=== PATIENT | male | born 1965 | race Caucasian/White ===

== ENCOUNTER 2024-01-13 08:51 | Inpatient (IN) | payer OTHER, SELFPAY ==
[2024-01-13] VITALS (20 sets, daily range): BP systolic 113–160; BP diastolic 66–99; PULSE 74–104; RESP 16–20; TEMP 35.9–38.7; O2SAT 89–99; BMI 36.2
--- NOTE | 2024-01-13 09:19 | CT_ITS ---
STUDY: CT ABDOMEN AND PELVIS WITH CONTRAST REASON FOR EXAM: Male, 58 years old. RLQ pain. 4 day history of nausea and diarrhea. RADIATION DOSAGE (If Supplied By Facility): CTDIvol = ( 17.07 ) mGy, DLP = ( 1369.99 ) mGycm TECHNIQUE: Transaxial images were obtained from the dome of the diaphragm to the symphysis pubis without oral contrast. IV 100mL Isovue-300 was administered. Sagittal and coronal images were reconstructed. Individualized dose optimization techniques were used for this CT. COMPARISON: Comparison is made with prior study March 16, 2007. FINDINGS: The visualized lung bases are unremarkable. Coronary artery calcification. There is decreased attenuation of the liver consistent with steatosis. Small layering gallstones are seen along the dependent portion of the gallbladder lumen. Normal spleen. Normal pancreas. There is an 8.2 mm enhancing nodule in the lateral limb of the right adrenal gland. There is a 3.2 sono by 3.9 cm cyst in the anterior-inferior aspect of the right kidney. Tiny cysts are seen in the left kidney. There is a small hiatal hernia. Normal small intestine. There are multiple colonic diverticula consistent with diverticulosis. There is a tubular, thick-walled appendix (>7mm), consistent with acute appendicitis. There is diffuse atherosclerotic calcification of the abdominal aorta, without a demonstrated aneurysm. Normal inferior vena cava. There is borderline retroperitoneal lymphadenopathy with enlarged nodes no greater than 10mm in the short axis diameter. Normal urinary bladder. Calcified phleboliths are seen in the pelvis. Normal abdominal wall. There are degenerative changes of the visualized lumbar spine. CT/Abdomen/Pelvis W IV Cont ONLY IMPRESSION: Findings in keeping with acute appendicitis with the inflammatory changes surrounding the appendix. This extends into the inferior aspect of the right perinephric space. Fatty infiltration of the liver. Small layering gallstones. 8.2 mm enhancing nodule in the lateral limb of the right adrenal gland. Electronically Signed: Puneet Lundy MD at 10:57 EDT ,
--- NOTE | 2024-01-13 09:20 | EDS_ITS ---
HPI History of Present Illness Chief Complaint: Abd Pain Detail of Chief Complaint: Right lower quadrant pain Informant: patient Onset/Context/Timing Onset: Days (5 days) Narrative Narrative: Patient presents with right lower quad abdominal pain that started 4 days ago. Patient states he was driving home from work night when he noted pain in the right lower quadrant. Initially thought he had pulled a muscle but does not remember doing anything. Pain has persisted throughout the weekend. He did have a temperature up to 100.6. He has had poor appetite. He has had some fartun sea but no vomiting. [facility] Medical History (Updated 01/13/24 @ 10:[address] France Pandya MD) Kidney stones HTN (hypertension) Diabetes Allergy/AdvReac Type Severity Reaction Status Date / Time No Known Allergies Allergy Verified 01/13/24 09:19 Social History Smoking Status: Former smoker ROS ROS ED Constitutional Constitutional ED: Reports fever(s); Denies chills Eyes Eyes: Denies change in vision ENT ENT ED: Denies rhinorrhea or sore throat Cardiovascular Cardiovascular: Denies chest pain or palpitations Respiratory/Chest Respiratory/Chest: Denies cough or dyspnea Gastrointestinal Gastrointestinal: Reports abdominal pain and nausea; Denies diarrhea or vomiting Genitourinary Genitourinary ED: Denies difficulty urinating or dysuria Musculoskeletal Musculoskeletal: Denies back pain or extremity pain Integumentary Denies Abrasions or rash Neurologic Neurologic: Denies headache(s) or weakness Psychiatric Psychiatric: Denies anxiety or depression Allergic/Immunologic Allergic/Immunologic ED: Denies lip swelling or urticaria EXAM Physical Exam Const Vital Signs: 01/13/24 08:52 Temperature 96.7 F L Temperature Source Temporal Pulse Rate 101 H Respiratory Rate 18 Blood Pressure 160/91 H Blood Pressure Mean 114 Pulse Ox 99 Oxygen Delivery Method Room Air Positive well nourished and well developed General Appearance ED: well developed HEENT Reports moist mucous membranes Eyes EOMs intact bilaterally Chest Wall inspection of chest normal and palpation of chest normal Resp normal respiratory effort and clear to auscultation bilaterally Cardio regular rate and regular rhythm GI GI Narrative: Abdomen soft with moderate tenderness to the right lower quadrant. No guarding or rebound at this time. Hypoactive bowel sounds Extremity normal to inspection Neuro oriented x3 and no sensory deficits noted Motor Exam: strength 5/5 throughout Psych mental status grossly normal Skin no rashes or lesions noted MDM MDM MDM Narrative Medical decision making narrative: IV line established. Patient given morphine, Zofran, and IV fluids. Labwork obtained to evaluate for leukocytosis, anemia, and electrolyte derangement. Urinalysis obtained to evaluate for infection/hematuria. CT abdomen pelvis with IV contrast will be obtained due to suspicion of appendicitis. History & Record Review Discussion w/independent historian: Patient Lab Data Attestation: I reviewed the patient's lab results. Labs: Laboratory Results - last 24 hr 01/13/24 01/13/24 09:14 09:24 WBC 13.2 H RBC 5.05 Hgb 14.9 Hct 47.5 MCV 94.1 H MCH 29.5 MCHC 31.4 L RDW Std Deviation 48.3 H RDW Coeff of Elsie 14.1 Plt Count 260 MPV 9.9 Immature Gran % (Auto) 0.600 Neut % (Auto) 79.2 H Lymph % (Auto) 9.5 L [place] % (Auto) 9.4 Eos % (Auto) 0.8 Baso % (Auto) 0.5 Absolute Neuts (auto) 10.4 H Absolute Lymphs (auto) 1.25 Nucleated RBC % 0 Sodium 134 L Potassium 3.8 Chloride 99 Carbon Dioxide 24.0 Anion Gap 11 BUN 18 Creatinine 1.00 Estim Creat Clear Calc 105.18 Est GFR (MDRD) Af Amer 99 Est GFR (MDRD) Non-Af 82 BUN/Creatinine Ratio 18.0 Glucose 150 H Calcium 9.4 Urine Color Yellow Urine Clarity Clear Urine pH 6.0 Ur Specific [place] 1.015 Urine Protein Negative Urine Glucose (UA) 1000 H Urine Ketones 150 A* Urine Occult Blood Negative Urine Nitrite Negative Urine Bilirubin Negative Urine Urobilinogen Normal Ur Leukocyte Esterase Negative Urine RBC 0 SEEN Urine WBC 0 SEEN Ur Squamous Epith Cells 0 SEEN Urine Bacteria 1+ Urine Mucus 0 SEEN Treatment and Re-Evaluation :: CBC was a white count of 13.2 with 79% neutrophils. Hemoglobin is 14.9. Chemistry studies unremarkable. Urinalysis reveals ketones but no evidence of acute infection. CT scan of the abdomen pelvis with IV contrast per my interpretation reveals evidence of acute appendicitis. Patient is given a dose of Zosyn and I have spoken with the surgeon who was evaluated the patient's images. He will be up to see the patient to discuss surgery. Discharge Plan Triage Chief Complaint: Abd Pain ED Provider: France Pandya Dx/Rx/DC Orders Clinical Impression: Acute appendicitis Primary Care Provider: Adin San Referrals: Adin San MD [Primary Care Provider] - Print Language: Namibian Disposition Disposition: Acute Care [facility]
[2024-01-13] MEDS: Morphine 4 MG/ML Syringe IV (09:31)
[2024-01-13] MEDS: 0.9% Normal Saline (1000mL) 1,000 ML 150 ML IV (09:31)
[2024-01-13] MEDS: Ondansetron 4 MG/2 ML Vial IV (09:31)
[2024-01-13 09:35] LABS: Mucous, Urine 0 SEEN /hpf (<or=2+); Red Blood Cells-Urine 0 SEEN /hpf (0-5); Squamous Epithelial Cells - UA 0 SEEN /hpf (0-5); White Blood Cells 0 SEEN /hpf (0-5)
[2024-01-13 09:46] LABS: Color, Urine Yellow (Yellow); Glucose, Dipstick 1000 mg/dl (Normal); Leukocyte Esterase-Dipstick Negative /ul (Negative); Nitrite-Dipstick Negative (Negative); Occult Blood-Urine Negative /ul (Negative); Protein-Dipstick Negative (Negative); Specific Gravity, Urine 1.015 (1.002-1.030); Urine Bilirubin Dipstick Negative (Negative); Urine Clarity Clear (Clear); Urine Urobilinogen Normal (Normal)
[2024-01-13 09:48] LABS: Ketone-Dipstick 150 mg/dl (Negative)
[2024-01-13 09:52] LABS: Absolute Lymphocyte Count 1.25 X10^3/uL (0.83-4.51); Absolute Neutrophil Count 10.4 X10^3/uL (2.0-7.7); Basophil# 0.06 X10^3/uL; Basophil% 0.5 % (0-1); Eosinophil# 0.11 X10^3/uL; Eosinophils% 0.8 % (0-5); Hematocrit 47.5 % (40-54); Hemoglobin 14.9 g/dL (13.0-16.5); Lymphocyte # 1.25 X10^3/ul (0.83-4.51); Lymphocyte % 9.5 % (19-41); Mean Corp Hgb Conc 31.4 g/dL (32-36); Mean Corpuscular Hgb 29.5 pg (27.0-32.0); Mean Corpuscular Volume 94.1 fL (80-94); Mean Platelet Vol. 9.9 fl (6.2-12.0); Monocyte# 1.24 X10^3/uL; Monocyte% 9.4 % (0-10); NRBC Flagged by Analyzer 0 % (0-5); Neutrophil # 10.42 X10^3/uL (2.7-7.7); Neutrophil % 79.2 % (47-70); Platelet Count 260 K/mm3 (150-450); RBC Distribution Width CV 14.1 % (11.6-14.6); RBC Distribution Width SD 48.3 fl (35.1-43.9); Red Blood Count 5.05 M/mm3 (4.6-6.2); White Blood Count 13.2 K/mm3 (4.4-11.0)
[2024-01-13 09:57] LABS: Anion Gap 11 (5-15); BUN 18 mg/dL (7-18); Calcium,Total 9.4 mg/dL (8.5-10.1); Chloride 99 mmol/L (98-107); EST Glomerular Filtration Rate 82 mL/min (>60); Est Glom Filt Rate - Afr Amer 99 mL/min (>60); Estimated Creatinine Clearance 105.18 ml/min; Glucose 150 mg/dL (74-106); Potassium 3.8 mmol/L (3.5-5.1); Sodium Level 134 mmol/L (136-145)
[2024-01-13 09:59] LABS: Bacteria 1+ /hpf (None Seen)
[2024-01-13] MEDS: Piperacil/Tazobactam 3.375 GM in 0.9% Normal Saline (50mL MB+) 50 ML IV ×2 (10:29→22:41)
--- NOTE | 2024-01-13 10:42 | EKG12_ITS ---
Test Reason : PRE-OP Blood Pressure : / mmHG Vent. Rate : 093 BPM Atrial Rate : 093 BPM P-R Int : 192 ms QRS Dur : 086 ms QT Int : 378 ms P-R-T Axes : 015 050 004 degrees QTc Int : 469 ms Sinus rhythm with Premature atrial complexes Cannot rule out Inferior infarct , age undetermined Abnormal ECG Confirmed by MUSTAPHA KRISHNAMURTHY, LIGIA ([id number]), editor managing newspaper VILLA KOEHLER ([id number]) on 01/14/2024 11:24:47 AM Referred By: Confirmed By:LIGIA LUCIANO MD
--- NOTE | 2024-01-13 10:53 | ED.RN ---
Attempted to call report to OR staff x2.
--- NOTE | 2024-01-13 11:05 | PCM.HP.STD ---
HPI - General General Date of Admission: 01/13/24 Date of Service: 01/13/24 Chief Complaint: Right lower quadrant abdominal pain HPI Narrative IVAN BACK, is a 58 M who presents with a 4 day history of right lower quadrant pain. Patient notes the pain in the right lower quadrant started on . Saturday around dinnertime he noted pain in the middle of the abdomen, which radiated towards the right lower quadrant. Patient notes the pain continued to progress. Patient noted a lack of appetite and nausea associated with his abdominal symptoms. Patient notes diarrhea started 2 days prior to his abdominal symptoms. Patient denies any vomiting. He noted a fever on Saturday and Saturday. He denies any further fever at this time. Patient notes if he is sitting still the pain is not as intense. He notes if the right lower abdominal is touched it is painful. Patient denies any cardiac or pulmonary history. He denies any previous abdominal surgeries. His past medical history includes diabetes, hypertension and high cholesterol. He is on medication for diabetes and hypertension. He notes taking multiple supplements for which omega 3's are one of them. He denies any blood thinners. He denies any previous complications or side effects from anesthesia. CT scan of the ab/pel demonstrated: IMPRESSION: Findings in keeping with acute appendicitis with the inflammatory changes surrounding the appendix. This extends into the inferior aspect of the right perinephric space. Fatty infiltration of the liver. Small layering gallstones. 8.2 mm enhancing nodule in the lateral limb of the right adrenal gland. WBC 13.2, Hgb 14.9, Hct 47.5, plt 260. Neut 79.2. [facility] Medical History (Updated 01/13/24 @ 11:14 by Aliza GALVAN, PA-C) Kidney stones HTN (hypertension) Diabetes Medical History unable to obtain Allergy/AdvReac Type Severity Reaction Status Date / Time No Known Allergies Allergy Verified 01/13/24 09:19 Social History Smoking Status: Former smoker ROS Constitutional Constitutional: Reports systems reviewed and no addt'l complaints, except as documented Eyes Eyes: Reports systems reviewed and no addt'l complaints, except as documented ENT HEENT: Reports systems reviewed and no addt'l complaints, except as documented Cardiovascular Cardiovascular: Reports systems reviewed and no addt'l complaints, except as documented Respiratory/Chest Respiratory/Chest: Reports systems reviewed and no addt'l complaints, except as documented Gastrointestinal Gastrointestinal: Reports systems reviewed and no addt'l complaints, except as documented Genitourinary Genitourinary: Reports systems reviewed and no addt'l complaints, except as documented Musculoskeletal Musculoskeletal: Reports systems reviewed and no addt'l complaints, except as documented Integumentary Integumentary: Reports systems reviewed and no addt'l complaints, except as documented Neurologic Neurologic: Reports systems reviewed and no addt'l complaints, except as documented Psychiatric Psychiatric: Reports systems reviewed and no addt'l complaints, except as documented Endocrine Endocrinology: Reports systems reviewed and no addt'l complaints, except as documented Hematologic/Lymphatic Hematologic/Lymphatic: Reports systems reviewed and no addt'l complaints, except as documented Allergic/Immunologic Allergic/Immunologic: Reports systems reviewed and no addt'l complaints, except as documented Vital Signs Vital Signs Vital Signs: 01/13/24 08:52 01/13/24 10:44 01/13/24 11:03 Temperature 96.7 F L 97.6 F L 97.6 F L Temperature Source Temporal Oral Pulse Rate 101 H 85 81 Respiratory Rate 18 18 18 Blood Pressure 160/91 H 149/73 H 138/80 H Blood Pressure Mean 114 98 99 Blood Pressure Source Monitor Pulse Ox 99 98 98 Oxygen Delivery Method Room Air Room Air Weight Weight: 260 lb Body Mass Index (BMI) 36.2 Physical Exam Const alert, oriented x3 and no apparent distress HEENT normocephalic and head/scalp atraumatic Eyes PERRL Neck full ROM Lymph Lymphatic: no lymphadenopathy noted Chest inspection of chest normal Resp normal respiratory effort and clear to auscultation bilaterally Cardio regular rate and regular rhythm GI GI Narrative: Abdomen- soft, obese, slight distention. Right lower quadrant pain with palpation and guarding. Positive McBurney's sign. Positive bowel sounds. Inspection: central obesity Auscultation: normoactive bowel sounds Palpation: soft and tender RLQ and McBurney's point no CVA tenderness Back/Spine no CVA tenderness Extremity normal to inspection Skin no rashes or lesions noted Neuro no focal motor deficits and no sensory deficits noted Psych mental status grossly normal and thought process normal Results Lab / Micro Data 01/13/24 09:14 01/13/24 09:14 Labs: Laboratory Results - last 24 hr 01/13/24 09:14: WBC 13.2 H, RBC 5.05, Hgb 14.9, Hct 47.5, MCV 94.1 H, MCH 29.5, MCHC 31.4 L, RDW Std Deviation 48.3 H, RDW Coeff of Elsie 14.1, Plt Count 260, MPV 9.9, Immature Gran % (Auto) 0.600, Neut % (Auto) 79.2 H, Lymph % (Auto) 9.5 L, [place] % (Auto) 9.4, Eos % (Auto) 0.8, Baso % (Auto) 0.5, Absolute Neuts (auto) 10.4 H, Absolute Lymphs (auto) 1.25, Nucleated RBC % 0, Sodium 134 L, Potassium 3.8, Chloride 99, Carbon Dioxide 24.0, Anion Gap 11, BUN 18, Creatinine 1.00, Estim Creat Clear Calc 105.18, Est GFR (MDRD) Af Amer 99, Est GFR (MDRD) Non-Af 82, BUN/Creatinine Ratio 18.0, Glucose 150 H, Calcium 9.4 01/13/24 09:24: Urine Color Yellow, Urine Clarity Clear, Urine pH 6.0, Ur Specific [place] 1.015, Urine Protein Negative, Urine Glucose (UA) 1000 H, Urine Ketones 150 A*, Urine Occult Blood Negative, Urine Nitrite Negative, Urine Bilirubin Negative, Urine Urobilinogen Normal, Ur Leukocyte Esterase Negative, Urine RBC 0 SEEN, Urine WBC 0 SEEN, Ur Squamous Epith Cells 0 SEEN, Urine Bacteria 1+, Urine Mucus 0 SEEN Imaging Radiology Impression Abdomen/Pelvis CT 01/13/24 09:19 IMPRESSION: Findings in keeping with acute appendicitis with the inflammatory changes surrounding the appendix. This extends into the inferior aspect of the right perinephric space. Fatty infiltration of the liver. Small layering gallstones. 8.2 mm enhancing nodule in the lateral limb of the right adrenal gland. Electronically Signed: Puneet Lundy MD at 10:57 EDT , Assessment & Plan Assessment/Plan (1) Acute appendicitis: QUALIFIERS: Acute appendicitis type: with localized peritonitis Appendicitis gangrene presence: unspecified whether gangrene present Appendicitis perforation presence: unspecified whether perforation present Appendicitis abscess presence: unspecified whether abscess present Qualified Code(s): K35.30 - Acute appendicitis with localized peritonitis, without perforation or gangrene PLAN: I am seeing this patient in conjunction with Dr. Reyes. Patient presents with a 4 day history of right lower quadrant pain which has become increasingly worse. Patient's CT scan confirms acute appendicitis with leukocytosis and left shift. Dr. Reyes will plan to perform a laparoscopic appendectomy with possible ileocecectomy, possible drain placement. Procedure details, risks and benefits have been explained. Patient has had the opportunity to ask and have questions answered. Patient verbally understands and agrees with the plan. Patient is aware he may be admitted pending the findings during surgery. Patient is agreeable to admission. Plan for surgery today around noon. Thank you for allowing us to participate in this patient's care. Charges/Coding Visit Charges OBSV E&M: 55677 [facility]hosp same date L2
--- NOTE | 2024-01-13 11:27 | PCM.PRE.AN2 ---
ASA Classification* ASA Classification ASA Classification: 2 and E Assessment & Plan Anesthesia* Anesthesia Assessment Anesthesia Assessment: Discussed sedation and/or anesthesia options, risks, benefits, and alternatives with patient/parents/legal guardian/POA. Questions invited. The patient/parents/legal guardian/POA seems to understand and agrees to proceed with anesthesia plan. Reviewed the physical assessment, medical history, allergy history and patient home medications list prior to surgery/procedure/anesthetic and documented any changes. Performed airway and anesthesia risk assessments. Anesthesia Type Anesthesia Type: General Pre-Assessment Diagnosis/Proposed Procedure Planned Operative Procedure(s): laproscopic appendectomy Anesthesia History Anesthesia History - press service reader: Anesthesia History - press service reader Hx Hospitalization Any Problems With Anesthesia Cholinesterase deficiency You/Your Family Experience fever (hyperthermia) with Relationship Recent Exposure to Contagious Disease Does patient have nerve No 01/13/24 10:44 stimulator Patient instructed to have device shut off --Does patient have Pacemaker or ICD? When Was Last Pacemaker Check QUESTION #4 FULL TEXT: You/Your Family Experience fever (hyperthermia) with Anesthesia Last Oral Intake Last Oral intake: Last Oral Intake NPO since Meds taken in AM with sips of water? Meds patient instructed to take am of surgery PONV PONV - press service reader: PONV - press service reader Female HX of Motion Sickness HX of N/V After Surgery Non-Smoker Duration of Surgery greater than 60 minutes Number of Risk Factors PONV Score Height & Weight Height & Weight: Anesthesia: Height & Weight Height 5 ft 11 in 01/13/24 10:44 Weight: 117.934 kg 01/13/24 10:44 Body Mass Index (BMI) 36.2 01/13/24 10:44 Respiratory Assessment Respiratory Assessment - press service reader: Respiratory Tract Infection Hx - press service reader Hx Respiratory Tract Infection STOP Sleep Apnea STOP Sleep Apnea - press service reader: STOP Sleep Apnea - press service reader Hx Hypertension Yes 01/13/24 10:44 Hx Sleep Apnea No 01/13/24 10:44 CPAP BIPAP Do you snore loudly (louder No 01/13/24 10:44 than talking or can be heard Do you often feel tired/ No 01/13/24 10:44 fatigued/ sleepy during daytime? Has anyone observed you stop No 01/13/24 10:44 breathing during sleep? STOP Results Negative 01/13/24 10:44 QUESTION #5 FULL TEXT : Do you snore loudly (louder than talking or can be heard through closed doors)? Tobacco Use History Tobacco Use History - press service reader: Tobacco Use History - press service reader Tobacco Use Smoking Status Former smoker 01/13/24 09:16 Hx Tobacco Use Years Smoking Packs Smoked per Day Smoking Cessation Date was Yes - quit smoking within 15 01/13/24 09:16 within the last 15 years years Hx Smoking Cessation Date Hx Smoking Cessation Counseling Hematologic Medial History Hematologic Hx - press service reader: Hematologic Medical Hx - posting clerk Hx of Blood Transfusion Hx of Transfusion in last 3 Months Date of Last Transfusion (if within last 3 months) Ever experience any problems with transfusion(s)? Specify any problems Hx of Preganancy in last 3 Months Nurse Filling Out Transfusion & Questions: Date: Time: Patient unable to answer at this time (ie. confused, unrespo /Reproduction History /Reproductive History - press service reader: /Reproductive Hx- press service reader Hx Now Gestational Age (in weeks): EDC: Hx Hx Para Hx Section SAB Active Medications Active Medications: Current Medications Generic Name Dose Route Start Last Admin Trade Name Freq PRN Reason Stop Dose Admin Sodium Chloride 1,000 mls @ 150 mls/hr 01/13/24 09:20 01/13/24 09:31 IV 150 mls/hr .[id number] ERIK Administration Anesthesia Focused Assessment* Temperature: 97.6 F Pulse Rate: 81 Blood Pressure: 138/80 Respiratory Rate: 18 Pulse Ox: 98 Airway Assessment Mouth opens: >3 cm Mallampati Score: II Focused Labs Anesthesia Preop lab: CBC WBC 13.2 K/mm3 (4.4-11.0) H 01/13/24 09:14 RBC 5.05 M/mm3 (4.6-6.2) 01/13/24 09:14 Hgb 14.9 g/dL (13.0-16.5) 01/13/24 09:14 Hct 47.5 % (40-54) 01/13/24 09:14 Plt Count 260 K/mm3 (150-450) 01/13/24 09:14 CHEMISTRY Potassium 3.8 mmol/L (3.5-5.1) 01/13/24 09:14 Sodium 134 mmol/L (136-145) L 01/13/24 09:14 BUN 18 mg/dL (7-18) 01/13/24 09:14 Creatinine 1.00 mg/dL (0.70-1.30) 01/13/24 09:14 Glucose 150 mg/dL (74-106) H 01/13/24 09:14 COAG Review of Systems (Anesthesia) ROS Narrative System reviewed and no additional complaints, except as documented. [facility] Medical History Kidney stones HTN (hypertension) Diabetes Medical History unable to obtain Allergy/AdvReac Type Severity Reaction Status Date / Time No Known Allergies Allergy Verified 01/13/24 09:19 Social History Smoking Status: Former smoker
--- NOTE | 2024-01-13 12:00 | APP_PTH ---
PATIENT: IVAN BACK LOC: MS3 U#:[id number] AGE/SX: 58/M ROOM: NV314 RE01/13/[address]: Dr. Adonis Reyes MD : [id number] BED: 1 DIS: 01/15/2024 SPEC #: [id number] RECD: 01/13/24 16:46 STATUS: NAYANA PETERSEN #: [id number] RUSS: 01/13/24 12:[address]: Adonis Reyes DEPT: SURGICAL PATHOLOGY RECD BY: Blanca Gold ENTERED: 01/14/24 09:54 SP TYPE: APPENDIX OTHR DR: Dr. Adin San MD Tissues: Appendix, NOS Procedures: Surgery Specimen Level III HEADER OPERATION: Laparoscopic, appendectomy PRE-OP DIAGNOSIS: Acute appendicitis, perforated appendicitis TISSUE SUBMITTED: Appendix MICROSCOPIC DIAGNOSIS Appendix, appendectomy: Acute necrotizing appendicitis. AM/mr 01/15/2024 MICROSCOPIC DESCRIPTION Slides are reviewed. GROSS DESCRIPTION Received in fixative is one container labeled with the patient's name and designated appendix. The specimen consists of appendix received in two fragments with an average length of 6.0cm and 1.0 cm in average diameter. No gross perforations are evident. Serial sections reveal a patent lumen with fecal material. No mass lesion is identified. Bank Cashier sections are submitted in one cassette. / AM: 01/14/2024 TC:2 CPT: [id number]
[2024-01-13] MEDS: Lactated Ringers 1,000 ML 15 ML IV (12:30)
[2024-01-13] MEDS: Bupiv/Epi 0.25% 30 ML Vial (13:07)
--- NOTE | 2024-01-13 13:18 | PCM.POST.ANE ---
Anesthesia: Postop Eval I Current Vital Signs Temperature: 98.3 F Pulse Rate: 77 Blood Pressure: 113/72 Respiratory Rate: 16 Pulse Ox: 94 Oxygen Delivery Method: Room Air Assessment Airway patent: Yes Spontaneous unlabored respirations: Yes Mental status: Awake and Calm nausea: No Vomiting: No Anesthesia Complication: No Fluid Hydration Crystalloid volume administer (ml): 1,200 Total IV fluid infused: 1,200 Progress Note Anesthesia document: Postop Eval 1 completed: Yes
--- NOTE | 2024-01-13 13:55 | POSTOPAN2_ITS ---
Anesthesia Postop Eval I Sum Postop Eval Completion status Anesthesia document: Postop Eval 1 completed: Yes Anesthesia Postop Eval I Summary Anesthesia Postop Eval I Summary: Anesthesia Postop Eval I: Assessment Summary Airway patent Yes 01/13/24 13:27 IN SERVICE EDUCATION [email or web address] Spontaneous unlabored Yes 01/13/24 13:27 IN SERVICE EDUCATION [email or web address] respirations Mental status Awake,Calm 01/13/24 13:27 IN SERVICE EDUCATION [email or web address] nausea No 01/13/24 13:27 IN SERVICE EDUCATION [email or web address] Vomiting No 01/13/24 13:27 IN SERVICE EDUCATION [email or web address] Anesthesia Postop Eval I: Fluid Summary Crystalloid volume administer 1,200 01/13/24 13:27 IN SERVICE EDUCATION [email or web address] (ml) Colloids volume administered ( ml) Blood Product volume administered (ml) Total IV fluid infused 1,200 01/13/24 13:27 IN SERVICE EDUCATION [email or web address] Anesthesia Postop Eval I: Summary Notes Anesthesia Complication No 01/13/24 13:27 IN SERVICE EDUCATION [email or web address] Anesthesia Complication Comment: Post-operative progress note Anesthesia: Postop Eval II Evaluation Mental status: Awake Pain Level: 0 nausea: No Vomiting: No Complications Anesthesia Complication: No
--- NOTE | 2024-01-13 13:55 | PCM.POSTANE2 ---
Anesthesia Postop Eval I Sum Postop Eval Completion status Anesthesia document: Postop Eval 1 completed: Yes Anesthesia Postop Eval I Summary Anesthesia Postop Eval I Summary: Anesthesia Postop Eval I: Assessment Summary Airway patent Yes 01/13/24 13:27 [email or web address] Spontaneous unlabored Yes 01/13/24 13:27 [email or web address] respirations Mental status Awake,Calm 01/13/24 13:27 [email or web address] nausea No 01/13/24 13:27 [email or web address] Vomiting No 01/13/24 13:27 [email or web address] Anesthesia Postop Eval I: Fluid Summary Crystalloid volume administer 1,200 01/13/24 13:27 [email or web address] (ml) Colloids volume administered ( ml) Blood Product volume administered (ml) Total IV fluid infused 1,200 01/13/24 13:27 [email or web address] Anesthesia Postop Eval I: Summary Notes Anesthesia Complication No 01/13/24 13:27 [email or web address] Anesthesia Complication Comment: Post-operative progress note Anesthesia: Postop Eval II Evaluation Mental status: Awake Pain Level: 0 nausea: No Vomiting: No Complications Anesthesia Complication: No
--- NOTE | 2024-01-13 15:24 | OP.PCM_ITS ---
Report of Operation Date of Procedure: 01/13/24 Pre-Operative Diagnosis: Acute appendicitis Post-Operative Diagnosis: Acute perforated appendicitis with peritonitis Surgery/Procedure Performed:: Laparoscopic appendectomy Type of Anesthesia: General/Regional Specimen's removed: Appendix Drains: NATANAEL to bulb suction Estimated Blood Loss (mL): 20 Description of Procedure: Patient was brought back to the operating room general anesthesia was induced. The abdomen was prepped and draped in usual sterile fashion. Midline incision was made superior to the umbilicus and the fascia was incised. A port was placed into the abdomen and it was insufflated 15 mmHg. Camera was placed into the abdomen and the patient was placed in Trendelenburg position. Under direct visualization a 5 mm port was placed in the left lower quadrant and a 5 mm port was placed in the suprapubic space. The right colon was inspected and the appendix was very inflamed and tethering the right colon down to the right lower quadrant. The base of the appendix was easy to identify but it ran down to the right lower quadrant and socked in. As soon as I tried to dissect I was met with abscess and feculent material. I suctioned all of this up and was able to find the rest of the appendix and dissected free and remove it. It in the middle where it was likely perforated. Stapler was used to staple across the base and the staple line appeared intact with healthy tissue. The piece of the appendix and the stool were placed in the bag and removed. The right lower quadrant was irrigated and suctioned dry and hemostasis was obtained using Enseal. After there was good hemostasis the rest of the abdomen was irrigated and suctioned dry. Next a 15 Croatian round drain was placed to the left lower quadrant incision and down into the right lower quadrant where the abscess cavity and appendix were. The drain was sutured to the skin using 3-0 nylon suture. Next the abdomen was suctioned dry and the abdomen was allowed to desufflate and ports were removed. Midline fascia was closed with a [id number] 0 Vicryl suture. The other incisions were injected with local anesthetic and closed with interrupted 4-0 Monocryl sutures. Drain bandage was placed over the drain site and bandages were placed over the other incisions. Patient was awoken and taken to PACU stable condition. Admit VTE Documentation VTE Mechan Device Prophylaxis: SCD's
[2024-01-13] MEDS: Morphine 2 MG/ML Syringe IV (16:25)
[2024-01-13] MEDS: 0.9% Normal Saline (1000mL) 1,000 ML 100 ML IV (18:11)
[2024-01-13] MEDS: Acetaminophen 325 MG Tablet 650 MG PO (18:38)
[2024-01-13] MEDS: 0.9% Normal Saline (1000mL) 1,000 ML 999 ML IV (21:37)
--- NOTE | 2024-01-13 22:35 | NURSING ---
pt walked a full lap in the luther. tolerated well
[2024-01-14] VITALS (7 sets, daily range): BP systolic 125–155; BP diastolic 72–85; PULSE 77–86; RESP 18; TEMP 36.6–37.1; O2SAT 92–97
[2024-01-14] MEDS: 0.9% Normal Saline (1000mL) 1,000 ML 100 ML IV ×3 (03:56→21:48)
[2024-01-14] MEDS: Piperacil/Tazobactam 3.375 GM in 0.9% Normal Saline (50mL MB+) 50 ML IV ×3 (06:01→21:47)
[2024-01-14] MEDS: Acetaminophen 325 MG Tablet 650 MG PO ×2 (06:03→21:56)
[2024-01-14 06:35] LABS: Absolute Neutrophil Count 11.8 X10^3/uL (2.0-7.7); Basophil# 0.03 X10^3/uL; Basophil% 0.2 % (0-1); Hematocrit 43.7 % (40-54); Hemoglobin 13.5 g/dL (13.0-16.5); Lymphocyte % 5.7 % (19-41); Mean Corp Hgb Conc 30.9 g/dL (32-36); Mean Corpuscular Hgb 29.5 pg (27.0-32.0); Mean Corpuscular Volume 95.4 fL (80-94); Mean Platelet Vol. 9.5 fl (6.2-12.0); Monocyte% 9.9 % (0-10); NRBC Flagged by Analyzer 0 % (0-5); Neutrophil # 11.82 X10^3/uL (2.7-7.7); Neutrophil % 83.5 % (47-70); Platelet Count 243 K/mm3 (150-450); RBC Distribution Width SD 48.6 fl (35.1-43.9); Red Blood Count 4.58 M/mm3 (4.6-6.2); White Blood Count 14.2 K/mm3 (4.4-11.0)
[2024-01-14 06:57] LABS: Anion Gap 9 (5-15); BUN 17 mg/dL (7-18); BUN/Creat Ratio 18.4 RATIO (10-20); Calcium,Total 8.4 mg/dL (8.5-10.1); Chloride 104 mmol/L (98-107); Creatinine, Serum 0.92 mg/dL (0.70-1.30); EST Glomerular Filtration Rate 89 mL/min (>60); Est Glom Filt Rate - Afr Amer 108 mL/min (>60); Estimated Creatinine Clearance 114.33 ml/min; Glucose 167 mg/dL (74-106); Sodium Level 137 mmol/L (136-145)
[2024-01-14 07:11] LABS: Bedside Glucose 158 mg/dL (74-106)
--- NOTE | 2024-01-14 08:07 | PCM.PN.SRG ---
Subjective Subjective Patient reports he is not passing flatus yet. He does not report any nausea or vomiting. Pain is well-controlled and better than yesterday. Objective Data Objective Data Vital Signs: Vital Signs Temp Pulse Resp BP Pulse Ox O2 Del Method O2 Flow Rate 98.5 F 77 18 125/72 H 96 Room Air 2 01/14/24 05:58 01/14/24 05:58 01/14/24 05:58 01/14/24 05:58 01/14/24 05:58 01/14/24 05:58 01/14/24 02:01 Oxygen Flow Rate (L/min) 2 Oxygen Delivery Method Room Air Weight: 259 lb 15.999 oz Body Mass Index (BMI) 36.2 Intake & Output: Intake and Output for Last 24 Hours 01/12/24 01/13/24 01/14/24 23:59 23:59 23:59 Intake Total 3692.83 / 3692.83 876.67 / 876.67 Output Total 90 / 90 30 / 30 Balance 3602.83 / 3602.83 846.67 / 846.67 Lab / Micro Data 01/14/24 06:16 01/14/24 06:16 Labs: Laboratory Results - last 24 hr 01/13/24 09:14: WBC 13.2 H, RBC 5.05, Hgb 14.9, Hct 47.5, MCV 94.1 H, MCH 29.5, MCHC 31.4 L, RDW Std Deviation 48.3 H, RDW Coeff of Elsie 14.1, Plt Count 260, MPV 9.9, Immature Gran % (Auto) 0.600, Neut % (Auto) 79.2 H, Lymph % (Auto) 9.5 L, [place] % (Auto) 9.4, Eos % (Auto) 0.8, Baso % (Auto) 0.5, Absolute Neuts (auto) 10.4 H, Absolute Lymphs (auto) 1.25, Nucleated RBC % 0, Sodium 134 L, Potassium 3.8, Chloride 99, Carbon Dioxide 24.0, Anion Gap 11, BUN 18, Creatinine 1.00, Estim Creat Clear Calc 105.18, Est GFR (MDRD) Af Amer 99, Est GFR (MDRD) Non-Af 82, BUN/Creatinine Ratio 18.0, Glucose 150 H, Calcium 9.4 01/13/24 09:24: Urine Color Yellow, Urine Clarity Clear, Urine pH 6.0, Ur Specific [place] 1.015, Urine Protein Negative, Urine Glucose (UA) 1000 H, Urine Ketones 150 A*, Urine Occult Blood Negative, Urine Nitrite Negative, Urine Bilirubin Negative, Urine Urobilinogen Normal, Ur Leukocyte Esterase Negative, Urine RBC 0 SEEN, Urine WBC 0 SEEN, Ur Squamous Epith Cells 0 SEEN, Urine Bacteria 1+, Urine Mucus 0 SEEN 01/14/24 06:16: WBC 14.2 H, RBC 4.58 L, Hgb 13.5, Hct 43.7, MCV 95.4 H, MCH 29.5, MCHC 30.9 L, RDW Std Deviation 48.6 H, RDW Coeff of Elsie 14.0, Plt Count 243, MPV 9.5, Immature Gran % (Auto) 0.700, Neut % (Auto) 83.5 H, Lymph % (Auto) 5.7 L, [place] % (Auto) 9.9, Eos % (Auto) 0.0, Baso % (Auto) 0.2, Absolute Neuts (auto) 11.8 H, Absolute Lymphs (auto) 0.80 L, Nucleated RBC % 0, Sodium 137, Potassium 4.0, Chloride 104, Carbon Dioxide 24.0, Anion Gap 9, BUN 17, Creatinine 0.92, Estim Creat Clear Calc 114.33, Est GFR (MDRD) Af Amer 108, Est GFR (MDRD) Non-Af 89, BUN/Creatinine Ratio 18.4, Glucose 167 H, Calcium 8.4 L 01/14/24 06:47: POC Glucose 158 H Radiography Diagnostic Testing: Radiology Impression Abdomen/Pelvis CT 01/13/24 09:19 IMPRESSION: Findings in keeping with acute appendicitis with the inflammatory changes surrounding the appendix. This extends into the inferior aspect of the right perinephric space. Fatty infiltration of the liver. Small layering gallstones. 8.2 mm enhancing nodule in the lateral limb of the right adrenal gland. Electronically Signed: Puneet Lundy MD at 10:57 EDT , Physical Exam Const oriented x3 and no apparent distress Resp normal respiratory effort GI soft to palpation Palpation: tender Assessment & Plan Assessment/Plan (1) Acute appendicitis: QUALIFIERS: Acute appendicitis type: with localized peritonitis Appendicitis gangrene presence: unspecified whether gangrene present Appendicitis perforation presence: unspecified whether perforation present Appendicitis abscess presence: unspecified whether abscess present Qualified Code(s): K35.30 - Acute appendicitis with localized peritonitis, without perforation or gangrene PLAN: Patient had acute appendicitis with abscess and perforation. He has a drain in place which is serosanguineous. His abdomen is soft but mildly distended. He is having some better bowel sounds but he is still having bowel function. Continue to encourage ambulation. Once he is having more substantial bowel function I will initiate diet. Continue antibiotics. Continue NATANAEL drain. Adonis Reyes MD Pager: [facility] [address] [place] [address], [address] [place] [address] Office:
[2024-01-14] MEDS: Pantoprazole Sodium 40 MG in 0.9% Normal Saline (100mL MB+) 100 ML 330 MG IV (10:04)
--- NOTE | 2024-01-14 10:37 | CASEMGMT ---
RN CM Assessment Face to Face with patient for initial transition planning/care coordination assessment. RN CM introduced self and role at [facility], pt voices understanding. Pt is A&Ox4 and is resting comfortably in the chair and is calm. Care providers, pharmacy, and demographics verified. Admitting dx: ABD Pain PCP: Jose M San Specialists: Denies Preferred Pharmacy: [facility] Insurance: SP. [facility] Process Control Board Operator was in to see the pt prior to RN CM assessment LNOK: Carmen Riojas (SO). Dena Simms (Daughter) Living Arrangements: Pt lives with his SO in a single level duplex with 1 step to enter ADLs/IADLs: Ind Transportation: Self, SO DME: Working [employer] and enough supplies. CPAP at HS with no additional oxygen. BP Cuff. Pulse Ox. HHC/SNF: Denies history or needs Pt?s goal: Home Plan: Pt plans to DC home once he is medically ready and states feeling safe doing so. Pt denies further questions or concerns at this time, CM to follow. Kris Riojas RN, CM
[2024-01-14 12:19] LABS: Bedside Glucose 118 mg/dL (74-106)
--- NOTE | 2024-01-14 13:44 | CASEMGMT ---
Social Work- SW met with pt, as he is self pay. Pt states that Lissette came up to speak with him and apply for medicaid. Pt states that the company he worked for last year downsized and his position was eliminated. Pt found a new position, but makes $20k less per year. Pt states that he has no medical coverage through his employer. Pt states he has cancelled medical appointments due to this. Pt states he has diabetes, but no other chronic medical conditions. Pt states he has stopped taking certain medications due to cost. Pt is familiar with and does use prescription program, [facility]. Pt states he has stable housing and does not worry about food scarcity. Pt states that he would appreciate utility assistance information. Pt does have a PCP through [facility] and has tried to link with their financial program previously to no avail. SW provided information on utilities assistance programs, prescription programs, and [facility] assistance program. Pt has already applied for the [facility] assistance program. BRIANNA Ponce
--- NOTE | 2024-01-14 15:53 | CHAPLAIN ---
Type of Pastoral Visit _x__ Initial Visit ___ Follow-up Visit ___ On-call Visit ___ General Patient Visit ___ Spiritual Assessment ___ Family Conference ___ Bereavement ___ Rapid Response ___ Code Blue ___ Other (describe below) Pastoral Care Referral From _x__ Patient ___ Family ___ Nurse ___ Physician ___ Cyber Transport Systems Specialist ___ Thermocouple Tester ___ Other (describe below) Sacrament/Intervention _x__ Active listening ___ Anointing ___ Advent ___ Bereavement ___ Communion ___ Anne exploration ___ _x__ Life review _x__ Prayer ___ Reconciliation ___ Sacrament of Sick ___ Supportive presence ___ Wedding ___ Other (describe below) Pastoral Comments patient was sitting up in chair after having an emergency surgery earlier; pt was pleased with how things went and how quickly he had attention; pt was talkative about his work and what he would be missing this week by being absent; pt has good support and a protestant connection; pt welcomes prayer and presence
[2024-01-14 16:39] LABS: Bedside Glucose 119 mg/dL (74-106)
[2024-01-15 00:25] LABS: Bedside Glucose 122 mg/dL (74-106)
[2024-01-15] MEDS: Piperacil/Tazobactam 3.375 GM in 0.9% Normal Saline (50mL MB+) 50 ML IV (05:29)
[2024-01-15] MEDS: Acetaminophen 325 MG Tablet 650 MG PO ×2 (05:31→14:08)
[2024-01-15 06:55] VITALS: O2SAT 94
[2024-01-15 07:36] LABS: Absolute Lymphocyte Count 1.18 X10^3/uL (0.83-4.51); Absolute Neutrophil Count 8.1 X10^3/uL (2.0-7.7); Basophil# 0.02 X10^3/uL; Basophil% 0.2 % (0-1); Eosinophil# 0.07 X10^3/uL; Eosinophils% 0.7 % (0-5); Hematocrit 40.4 % (40-54); Hemoglobin 12.8 g/dL (13.0-16.5); Lymphocyte # 1.18 X10^3/ul (0.83-4.51); Lymphocyte % 11.1 % (19-41); Mean Corp Hgb Conc 31.7 g/dL (32-36); Mean Corpuscular Hgb 29.8 pg (27.0-32.0); Mean Corpuscular Volume 94.2 fL (80-94); Mean Platelet Vol. 9.8 fl (6.2-12.0); Monocyte# 1.21 X10^3/uL; Monocyte% 11.4 % (0-10); NRBC Flagged by Analyzer 0 % (0-5); Neutrophil # 8.12 X10^3/uL (2.7-7.7); Platelet Count 237 K/mm3 (150-450); Red Blood Count 4.29 M/mm3 (4.6-6.2); White Blood Count 10.7 K/mm3 (4.4-11.0)
[2024-01-15 07:59] LABS: Anion Gap 5 (5-15); BUN 14 mg/dL (7-18); BUN/Creat Ratio 18.5 RATIO (10-20); Calcium,Total 8.6 mg/dL (8.5-10.1); Chloride 107 mmol/L (98-107); Creatinine, Serum 0.76 mg/dL (0.70-1.30); EST Glomerular Filtration Rate 113 mL/min (>60); Est Glom Filt Rate - Afr Amer 136 mL/min (>60); Estimated Creatinine Clearance 138.38 ml/min; Glucose 139 mg/dL (74-106); Potassium 3.5 mmol/L (3.5-5.1); Sodium Level 136 mmol/L (136-145)
[2024-01-15 08:12] VITALS: BP 146/88; PULSE 76; RESP 18; TEMP 36.7; O2SAT 96
--- NOTE | 2024-01-15 08:12 | PN.SURG_ITS ---
Subjective Subjective Patient evaluated resting comfortably in bed. Patient notes passing flatus. He notes his pain is well controlled with Tylenol. Patient denies nausea, vomiting, fever. He is tolerating a full liquid diet yesterday. Objective Data Objective Data Vital Signs: Vital Signs Temp Pulse Resp BP Pulse Ox O2 Del Method O2 Flow Rate 98.8 F 86 18 142/79 H 92 Room Air 2 01/14/24 21:41 01/14/24 21:41 01/14/24 21:41 01/14/24 21:41 01/14/24 21:41 01/15/24 04:20 01/14/24 02:01 Oxygen Flow Rate (L/min) 2 Oxygen Delivery Method Room Air Weight: 259 lb 14.8 oz Body Mass Index (BMI) 36.2 Intake & Output: Intake and Output for Last 24 Hours 01/13/24 01/14/24 01/15/24 23:59 23:59 23:59 Intake Total 3692.83 / 3692.83 6296.00 / 6296.00 650 / 650 Output Total 90 / 90 90 / 90 Balance 3602.83 / 3602.83 6206.00 / 6206.00 650 / 650 Lab / Micro Data 01/15/24 06:25 01/15/24 06:25 Labs: Laboratory Results - last 24 hr 01/14/24 11:38: POC Glucose 118 H 01/14/24 16:18: POC Glucose 119 H 01/14/24 21:44: POC Glucose 122 H 01/15/24 06:25: WBC 10.7, RBC 4.29 L, Hgb 12.8 L, Hct 40.4, MCV 94.2 H, MCH 29.8, MCHC 31.7 L, RDW Std Deviation 49.0 H, RDW Coeff of Elsie 14.0, Plt Count 237, MPV 9.8, Immature Gran % (Auto) 0.600, Neut % (Auto) 76.0 H, Lymph % (Auto) 11.1 L, [place] % (Auto) 11.4 H, Eos % (Auto) 0.7, Baso % (Auto) 0.2, Absolute Neuts (auto) 8.1 H, Absolute Lymphs (auto) 1.18, Nucleated RBC % 0, Sodium 136, Potassium 3.5, Chloride 107, Carbon Dioxide 24.0, Anion Gap 5, BUN 14, Creatinine 0.76, Estim Creat Clear Calc 138.38, Est GFR (MDRD) Af Amer 136, Est GFR (MDRD) Non-Af 113, BUN/Creatinine Ratio 18.5, Glucose 139 H, Calcium 8.6 Physical Exam GI GI Narrative: Abdomen- soft, nontender. NATANAEL drain intact with serosanguineous fluid noted. Bowels sounds present. Incisions c/d/i. No erythema or infection noted. Assessment & Plan Assessment/Plan (1) Acute appendicitis: QUALIFIERS: Acute appendicitis type: with localized peritonitis A ppendicitis gangrene presence: unspecified whether gangrene present A ppendicitis perforation presence: unspecified whether perforation present A ppendicitis abscess presence: unspecified whether abscess present Qualified Code(s): K35.30 - Acute appendicitis with localized peritonitis, without perforation or gangrene PLAN: I am following this patient in conjunction with Dr. Reyes. He has independently evaluated this patient. Lab work reviewed. WBC has returned to normal. Increase diet to regular diet for breakfast. If he tolerates regular diet, plan to remove NATANAEL drain and discharge home on antibiotics Charges/Coding Visit Charges Inpatient E&M: 65584 Subs Hosp L1 (no charge; post-op)
[2024-01-15 08:18] LABS: Bedside Glucose 140 mg/dL (74-106)
--- NOTE | 2024-01-15 10:10 | DS.PCM_ITS ---
Providers Date of Admission: 01/13/24 Date of Discharge: 01/15/24 Primary Care Physician: Dr. Adin San MD Reason For Visit: abd pain Diagnosis Discharge Diagnosis (1) Acute appendicitis: Status: Acute Code(s): K35.80 - Unspecified acute appendicitis Qualifiers: Acute appendicitis type: with localized peritonitis Appendicitis abscess presence: unspecified whether abscess present Appendicitis gangrene presence: unspecified whether gangrene present Appendicitis perforation presence: unspecified whether perforation present Qualified Code(s): K35.30 - Acute appendicitis with localized peritonitis, without perforation or gangrene Plan: I am following this patient in conjunction with Dr. Reyes. He has independently evaluated this patient. Lab work reviewed. WBC has returned to normal. Increase diet to regular diet for breakfast. If he tolerates regular diet, plan to remove NATANAEL drain and discharge home on antibiotics Medications at Discharge Home Medications ascorbic acid (vitamin C) 500 mg tablet,extended release (C Complex) 1,000 mg PO DAILY 01/13/24 cholecalciferol (vitamin D3) 50 mcg (2,000 unit) capsule (Vitamin D3) 50 mcg PO DAILY 01/13/24 cinnamon bark 500 mg capsule (Cinnamon) 8,000 mg PO DAILY 01/13/24 cyanocobalamin (vitamin B-12) 1,000 mcg tablet (Vitamin B-12) 1,000 mcg PO DAILY 01/13/24 dapagliflozin propanediol 5 mg tablet (Farxiga) 5 mg PO DAILY 01/13/24 glimepiride 4 mg tablet 8 mg PO DAILY 01/13/24 lisinopril 20 mg-hydrochlorothiazide 12.5 mg tablet 1 tab PO DAILY 01/13/24 magnesium 250 mg tablet 250 mg PO DAILY 01/13/24 omega-3 fatty acids 1,000 mg PO DAILY 01/13/24 pyridoxine (vitamin B6) 100 mg tablet 100 mg PO DAILY 01/13/24 zinc gluconate 50 mg tablet 50 mg PO DAILY 01/13/24 acetaminophen 325 mg tablet 650 mg (2 x 325 mg) PO Q4H PRN PRN Pain 1-10 Or Fever #0 tabs 01/15/24 amoxicillin 875 mg-potassium clavulanate 125 mg tablet 1 tab PO BID 7 days #14 tabs 01/15/24 oxycodone 5 mg tablet 5 mg PO Q6H PRN PRN Pain Score 1-10 2 days #6 tabs 01/15/24 Hospital Course Operations appendectomy Summary of Care Provided Minutes Spent on Discharge: 35 Hospital Course: Patient is a 58 y/o M who presented with a 4 day history of right lower quadrant abdominal pain. CT scan of ab/pel confirmed acute appendicitis. Dr. Reyes performed a laparoscopic appendectomy with NATANAEL drain placement on 01/13/24. Patient was found to have perforated appendicitis. Patient tolerated the procedure well. Patient continued to be hospitalized for IV antibiotics and return of bowel function. Patient's hospitalization was uneventful. Upon discharge, patient is tolerating a regular diet without nausea, vomiting. He denies any fever. He notes passing flatus. He denies having a bowel movement. NATANAEL drain was removed prior to discharge. Patient was sent home on oral Augmentin x 7 days. Patient instructed to follow-up with Dr. Reyes in 2 weeks. Physical Exam GI GI Narrative: Abdomen- soft, nontender. Incisions c/d/i. No erythema or infection noted. Weight / BMI Weight Weight: 259 lb 14.8 oz Body Mass Index (BMI) 36.2 ABG / Lab / Microbiology Data 01/15/24 06:25 01/15/24 06:25 Laboratory: Laboratory Results - last 24 hr 01/14/24 11:38: POC Glucose 118 H 01/14/24 16:18: POC Glucose 119 H 01/14/24 21:44: POC Glucose 122 H 01/15/24 05:28: POC Glucose 140 H 01/15/24 06:25: WBC 10.7, RBC 4.29 L, Hgb 12.8 L, Hct 40.4, MCV 94.2 H, MCH 29.8, MCHC 31.7 L, RDW Std Deviation 49.0 H, RDW Coeff of Elsie 14.0, Plt Count 237, MPV 9.8, Immature Gran % (Auto) 0.600, Neut % (Auto) 76.0 H, Lymph % (Auto) 11.1 L, [place] % (Auto) 11.4 H, Eos % (Auto) 0.7, Baso % (Auto) 0.2, Absolute Neuts (auto) 8.1 H, Absolute Lymphs (auto) 1.18, Nucleated RBC % 0, Sodium 136, Potassium 3.5, Chloride 107, Carbon Dioxide 24.0, Anion Gap 5, BUN 14, Creatinine 0.76, Estim Creat Clear Calc 138.38, Est GFR (MDRD) Af Amer 136, Est GFR (MDRD) Non-Af 113, BUN/Creatinine Ratio 18.5, Glucose 139 H, Calcium 8.6 D/C Instructions Discharge Diet: Light diet - advance as tolerated Discharge Activity: May Not Drive (3 days from surgery or while taking narcotic pain medication) Lifting Restrictions: No lifting greater than 15 pounds for 2 weeks Call your doctor if your incision/area has: Continuous Slow Oozing, Sudden Increased Bleeding, Increased Pain/ Swelling, Increased Redness, Foul Smelling Discharge and Swelling at the incision site Call your doctor if you observe: Fever of 101 or Higher Suture Line Care: Avoid Pulling/Pushing and Avoid Pinching/Bending Remove Dressing in: 2 days Cleanse incision/area with: Soap & Water Additional Dressing/Incision Instructions: Continue to keep drain site covered until area is completely closed. Please Follow Up With: Adonis Reyes MD When: Please call our office for a 2 week follow-up from surgery at [phone] option #2 Meaningful Use Info Meaningful Use Meaningful Use Diagnoses (Choose all that apply): None applicable Ischemic Stroke Statin Dosing Therapy Reference: STATIN DOSE THERAPY REFERENCE: * Patients > 75 years receive moderate or high dose statin therapy. * Patients 75 years or YOUNGER should receive HIGH intensity statin dose unless contraindicated. You will be required to document reason for non-treatment if statin daily dose does not meet guidelines. HIGH DOSE STATIN THERAPY DAILY Atorvastatin > than or = to 40 mg Rosuvastatin > than or = to 20 mg Amlodipine + Atorvastatin > than or = to 2.5/40 mg Ezetimibe + Simvastatin 10/80 mg Simvastatin 80mg Discharge Plan Admission Admit Date/Time: 01/13/24 15:27 Primary Reason for Your Visit: Acute perforated appendicitis Attending Provider: Adonis Reyes Primary Care Provider: Adin San Instructions Additional Instructions / Restrictions: Appendectomy Diet ? Start light with soups and soft bland foods. You may advance diet as tolerated. Activity ? You may drive in 3-5 days but not while taking narcotic pain medication. ? I encourage walking. You may go up steps, one at a time. ? Do not swim or use hot tubs for 2 weeks. ? For comfort, you may use warm compresses or ice as needed for 15-20 minutes at a time. Lifting ? You may lift up to 15 pounds for 2 weeks. Dressings/Incision ? You may shower OVER your plastic dressings ? Do NOT tub bathe for 1 week ? Leave plastic dressings on for 2 days. ? When plastic dressings are removed, you will find steri-strips. It is okay to continue showering with them in place, pat them dry. ? You may remove steri-strips after 1 week. We recommend getting them soaking wet for easier removal. Medications ? Anesthesia used during surgery and pain medications may cause constipation. I recommend initiating on the day of surgery a fiber supplement like, Metamucil, Citrucel, FiberCon, Benefiber, or a generic form of these medications. 1 heaping tablespoon in water daily. You may continue to utilize any bowel regimen or oral laxatives that you routinely take. You may experience constipation, if you do, you may take 1 tablespoon Miralax daily until bowel movements return to normal. ? As long as you are not intolerant to Tylenol, acetaminophen, ibuprofen, Motrin, Advil, Aleve, or similar medications, I would recommend transitioning to these [id number] medicines as soon as possible instead of continued use of narcotic pain medication. Follow up ? You should call [facility] soon after surgery, at [phone] option 1 to make a follow up appointment for 7-10 days after your surgery. Discharge Orders/Prescriptions Prescriptions: New oxycodone 5 mg Tablet 5 mg PO Q6H PRN PRN (Reason: Pain Score 1-10) 2 Days Qty: 6 0RF acetaminophen 325 mg Tablet 650 mg PO Q4H PRN PRN (Reason: Pain 1-10 Or Fever) Qty: 0 0RF amoxicillin-pot clavulanate 875-125 mg tablet 1 tab PO BID 7 Days Qty: 14 0RF Continued lisinopril-hydrochlorothiazide 20-12.5 mg tablet 1 tab PO DAILY glimepiride 4 mg tablet 8 mg PO DAILY dapagliflozin propanediol [Farxiga] 5 mg tablet 5 mg PO DAILY omega-3 fatty acids Capsule 1,000 mg PO DAILY cinnamon bark [Cinnamon] 500 mg capsule 8,000 mg PO DAILY ascorbic acid (vitamin C) [C Complex] 500 mg tablet extended release 1,000 mg PO DAILY cyanocobalamin (vitamin B-12) [Vitamin B-12] 1,000 mcg tablet 1,000 mcg PO DAILY pyridoxine (vitamin B6) 100 mg tablet 100 mg PO DAILY magnesium 250 mg tablet 250 mg PO DAILY zinc gluconate 50 mg tablet 50 mg PO DAILY cholecalciferol (vitamin D3) [Vitamin D3] 50 mcg (2,000 unit) capsule 50 mcg PO DAILY Referrals / Follow Up: Adonis Reyes MD [Med Staff - Active Staff] - (Follow-up in 2 weeks) Adin San MD [Primary Care Provider] - Disposition Disposition (needs filled in before D/C Order can be placed): Home, Self Care Charges/Coding Visit Charges Inpatient E&M: 56800 Disch Hosp >30min (No charge; post-op)
[2024-01-15 10:20] VITALS: BP 153/53; PULSE 62; RESP 18; TEMP 36.7; O2SAT 93
[2024-01-15 11:48] LABS: Bedside Glucose 141 mg/dL (74-106)
[2024-01-15] MEDS: Docusate Sodium 100 MG Capsule PO (14:07)
[2024-01-15] MEDS: Pantoprazole Sodium 40 MG Tablet PO (14:08)
[2024-01-15 14:25] VITALS: BP 153/59; PULSE 62; RESP 18; TEMP 37.2; O2SAT 93
--- NOTE | 2024-01-15 14:43 | PHA.DC_ITS ---
Pharmacy [facility] has performed discharge medication reconciliation and counseling for this patient. 1. AUGMENTIN 875MG PO BID X 7 DAYS 2. OXYCODONE 5MG PO Q6H PRN PAIN The patient's discharge medication list was reviewed for discrepancies and discrepancies were resolved. The patient was counseled on the following discharge medications and changes in medications for homegoing were reviewed. The Reason for Use, instructions for use, and potential side effects were reviewed for all new medications. The patient's questions regarding all of their medications were answered. The patient was able to verbally demonstrate an understanding of their discharge medications. Patient counseled by pharmacy benefits coordinatorJessica. Medications at Discharge Home Medications ascorbic acid (vitamin C) 500 mg tablet,extended release (C Complex) 1,000 mg PO DAILY 01/13/24 cholecalciferol (vitamin D3) 50 mcg (2,000 unit) capsule (Vitamin D3) 50 mcg PO DAILY 01/13/24 cinnamon bark 500 mg capsule (Cinnamon) 8,000 mg PO DAILY 01/13/24 cyanocobalamin (vitamin B-12) 1,000 mcg tablet (Vitamin B-12) 1,000 mcg PO DAILY 01/13/24 dapagliflozin propanediol 5 mg tablet (Farxiga) 5 mg PO DAILY 01/13/24 glimepiride 4 mg tablet 8 mg PO DAILY 01/13/24 lisinopril 20 mg-hydrochlorothiazide 12.5 mg tablet 1 tab PO DAILY 01/13/24 magnesium 250 mg tablet 250 mg PO DAILY 01/13/24 omega-3 fatty acids 1,000 mg PO DAILY 01/13/24 pyridoxine (vitamin B6) 100 mg tablet 100 mg PO DAILY 01/13/24 zinc gluconate 50 mg tablet 50 mg PO DAILY 01/13/24 acetaminophen 325 mg tablet 650 mg (2 x 325 mg) PO Q4H PRN PRN Pain 1-10 Or Fever #0 tabs 01/15/24 amoxicillin 875 mg-potassium clavulanate 125 mg tablet 1 tab PO BID 7 days #14 tabs 01/15/24 oxycodone 5 mg tablet 5 mg PO Q6H PRN PRN Pain Score 1-10 2 days #6 tabs 01/15/24
--- NOTE | 2024-01-15 15:30 | CASEMGMT ---
MAIKOL HINDS NOTE: Discharge order is in. Rx's have been e-scribed to [facility] pharmacy. Call placed to [facility]. Cost of pt's medications are $22.24. MAIKOL HINDS to room. Pt made aware and he states they can afford to purchase them. Pt also provided yu/Lanny [facility] info. He voices appreciation. Noemí DUENAS RN, CM
== END 2024-01-15 15:37 | disposition home or self-care (01) | DRG 399 ==
LOC: ED 10:41 → SDC 10:47 → ACINP 10:48 → MS3 12:34 → SDC 15:56 → MS3 15:56
PROVIDERS: Admitting Provider Surgery; Emergency Provider Emergency Medicine; PCP Family Medicine; Visit Provider Surgery
PROC: 0DTJ4ZZ Resection of Appendix, Percutaneous Endoscopic Approach (ICD-10-PCS; CPT 44970; principal; 2024-01-13 11:40)
DX: K35.33 Acute appendicitis with perforation, localized peritonitis, and gangrene, with abscess (principal); E11.9 Type 2 diabetes mellitus without complications; I10 Essential (primary) hypertension; Z79.84 Long term (current) use of oral hypoglycemic drugs; Z79.899 Other long term (current) drug therapy; Z87.891 Personal history of nicotine dependence
CPT/HCPCS: 36415; 74177; 80048; 81001; 82962; 85025; 88304; 93005; 94668; 99283; J7030; J7120; Q9967; A4216; C1760; J2405

== ENCOUNTER → 2025-01-04 | Outpatient (CLI) | payer OTHER, SELFPAY | END | disposition home or self-care (01) | PROVIDERS: PCP Nurse Practitioner Family; Referring Provider Nurse Practitioner Family; Visit Provider Nurse Practitioner Family | DX: G47.33 Obstructive sleep apnea (adult) (pediatric) (principal) ==

== ENCOUNTER → 2025-06-09 | Outpatient (CLI) | payer OTHER, SELFPAY ==
[2025-06-09 12:24] LABS: Hematocrit 46.5 % (40-54); Hemoglobin 14.9 g/dL (13.0-16.5); Immature Granulocytes Count 0.040 X10^3/uL (0.0-0.0); Mean Corp Hgb Conc 32.0 g/dL (32-36); Mean Corpuscular Volume 92.4 fL (80-94); Mean Platelet Vol. 9.9 fl (6.2-12.0); NRBC Flagged by Analyzer 0 % (0-5); Platelet Count 230 K/mm3 (150-450); RBC Distribution Width CV 13.5 % (11.6-14.6); RBC Distribution Width SD 45.9 fl (35.1-43.9); Red Blood Count 5.03 M/mm3 (4.6-6.2); White Blood Count 6.8 K/mm3 (4.4-11.0)
[2025-06-09 13:14] LABS: AST(SGOT) 18 U/L (<=37); Alanine Aminotransfer ALT/SGPT 25 U/L (<=46); Albumin, Serum 4.3 g/dL (3.5-5.0); Alkaline Phosphatase 84 U/L (40-129); Anion Gap 11 (5-15); BUN 17 mg/dL (4-19); BUN/Creat Ratio 17.9 RATIO (10-20); Calcium,Total 9.7 mg/dL (7.6-11.0); Carbon Dioxide 28.4 mmol/L (21.0-32.0); Chloride 100 mmol/L (98-108); Cholesterol 195 mg/dL (<=200); Globulin 2.6 g/dL (2.2-4.2); Glucose 153 mg/dL (70-99); Low Density Lipoprotein Calc. 116 mg/dL; PSA,Total - Annual Screen 0.84 ng/mL (0.02-4.00); Potassium 4.5 mmol/L (3.3-5.1); Triglycerides 196 mg/dL; Very Low Density Lipoprotein 39 mg/dL (5-40); cholesterol:hdl ratio screen 4.37
== END | disposition home or self-care (01) ==
LOC: MTLAB 09:31
PROVIDERS: PCP Nurse Practitioner Family; Referring Provider Nurse Practitioner Family; Visit Provider Nurse Practitioner Family
DX: Z00.01 Encounter for general adult medical examination with abnormal findings (principal); Z12.5 Encounter for screening for malignant neoplasm of prostate
CPT/HCPCS: 36415; 80053; 80061; 84153; 85025; G0103